=== PATIENT | female | born 1955 | race Caucasian/White ===

== ENCOUNTER 2020-04-27 08:07 | Outpatient (CLI) | payer MEDICARE, SELFPAY ==
--- NOTE | ~2020-04-27 | MM_ITS ---
EXAMINATION: MM screening [facility] BI w jermaine HISTORY: Screening TECHNIQUE: Craniocaudal and mediolateral oblique 3-D tomosynthesis images were obtained and synthetic 2-D images were generated. CAD analysis was submitted and interpreted. COMPARISON: 01/14/2011 BREAST PARENCHYMAL COMPOSITION: There are scattered areas of fibroglandular density. FINDINGS: There is no evidence of suspicious mass, calcification, or architectural distortion to sugg est malignancy in either breast. There has been no suspicious interval change. IMPRESSION: 1. No mammographic evidence of malignancy. 2. Recommend routine screening mammography in one year. BI-RADS Category 1: Negative Reviewed, dictated and finalized at location A.
== END 2020-04-27 08:08 | disposition home or self-care (01) ==
LOC: ANHIMG 08:14
PROVIDERS: PCP Family Medicine; Visit Provider Obstetrics & Gynecology
DX: Z12.31 Encounter for screening mammogram for malignant neoplasm of breast (principal)
CPT/HCPCS: 77063; 77067

== ENCOUNTER 2020-06-14 11:52 | Outpatient (CLI) | payer MEDICARE, SELFPAY ==
--- NOTE | 2020-06-14 12:35 | ECG_ITS ---
Measurements Intervals [place] Rate: 61 P: 18 UT: 147 QRS: 17 QRSD: 93 T: 30 QT: 408 QTc: 412 Interpretive Statements SINUS RHYTHM BASELINE ARTIFACT- I, II, III, AVR, AVL, AVF NORMAL ECG Electronically Signed On 06-14-2020 12:57:42 CDT by Presley Emerson D.O.
[2020-06-14 13:00] LABS: Basophils Percent Auto 0.6 % (0.2-1.2); Eosinophils Percent Auto 0.7 % (0-4.4); Hematocrit 40.9 % (37.0-47.0); Hemoglobin 13.7 g/dL (12.0-15.0); Immature Granulocyte Absolute 0.02 K/mm3 (0.00-0.031); Immature Granulocyte Percent A 0.4 % (0-0.5); Lymphocytes Absolute Auto 1.73 K/mm3 (0.9-3.2); Lymphocytes Percent Auto 31.9 % (18.3-44.2); Mean Corpuscular HGB Conc 33.5 g/dl (32-36); Mean Corpuscular Hemoglobin 32.7 pg (26-34); Mean Corpuscular Volume 97.6 fl (80-100); Mean Platelet Volume 9.8 fl (7.4-10.4); Monocytes Absolute Auto 0.4 K/mm3 (0.1-0.6); Monocytes Percent Auto 6.8 % (2.6-8.5); Neutrophils Absolute Auto 3.2 K/mm3 (1.3-6.7); Neutrophils Percent Auto 59.6 % (45.5-73.1); Platelet Count Result 207 k/mm3 (150-375); Red Blood Count 4.19 M/mm3 (4.2-5.4); Red Cell Distribution Width 12.5 % (11.5-14.5); White Blood Count 5.4 K/mm3 (4.5-10.0)
[2020-06-14 13:09] LABS: INR 0.9; Prothrombin Time 12.1 Seconds (11.1-14.7)
[2020-06-14 13:10] LABS: Partial Thromboplastin Time 27.9 SECONDS (22.3-36.8)
[2020-06-14 13:15] LABS: Alanine Aminotransferase 20 U/L (4-35); Albumin Level 4.6 g/dL (3.5-5.1); Alkaline Phosphatase 103 U/L (38-126); Anion Gap 8 mmol/L (8-16); Aspartate Amino Transferase 26 U/L (14-36); Bilirubin,Total 0.7 mg/dL (0.2-1.3); Blood Urea Nitrogen 13 mg/dL (7-17); Calcium 9.4 mg/dL (8.4-10.2); Carbon Dioxide 29 mmol/L (22-30); Chloride 102 mmol/L (98-107); Estimated Glomerular Filt Rate > 60; Glucose 99 mg/dL (65-105); Potassium 3.9 mmol/L (3.4-5.0); Sodium 139 mmol/L (137-145)
== END 2020-06-14 11:53 | disposition home or self-care (01) ==
LOC: ANHSURGERY 11:55
PROVIDERS: PCP Family Medicine; Visit Provider Urology
DX: N81.10 Cystocele, unspecified (principal); I10 Essential (primary) hypertension; Z01.818 Encounter for other preprocedural examination
CPT/HCPCS: 36415; 80053; 85025; 85610; 85730; 86850; 86900; 86901; 87086; 87088; 93005

== ENCOUNTER 2020-06-22 00:37 | Outpatient (CLI) | payer MEDICARE, SELFPAY ==
[2020-06-22 20:27] LABS: SARS-CoV-2 RNA PCR Negative
== END 2020-06-22 00:38 | disposition home or self-care (01) ==
LOC: ANHCOVIDDT 00:38
PROVIDERS: PCP Family Medicine; Visit Provider Urology
DX: Z01.812 Encounter for preprocedural laboratory examination (principal); Z20.828 Contact with and (suspected) exposure to other viral communicable diseases
CPT/HCPCS: 87635; C9803; U0003

== ENCOUNTER 2020-06-25 00:36 | Day surgery (SDC) | payer MEDICARE, SELFPAY ==
[2020-06-14 12:35] VITALS: BP 151/67; PULSE 69; RESP 16; TEMP 37.2; O2SAT 99; BMI 31.4
--- NOTE | 2020-06-23 10:55 | PM.IMHP ---
H&P: HPI History of Present Illness Date/Time: 06/23/20 10:55 Chief complaint: Vaginal Vault Prolapse/ Stress Incontinence Narrative: Iveth Charles is a 65 year old female with POP and LEWIS Review of Systems Review of Systems: All systems reviewed & are unremarkable except as noted in HPI and below PMFSH Past Medical History Medical History (Updated 06/23/20 @ 10:57 by Miller Nolan MD) HLD (hyperlipidemia) Hypertension Surgical History Surgical History H/O: hysterectomy Family History Family History (Updated 03/29/20 @ 11:07 by Pia Toribio CMA) Mother Hypertension Carcinoma of colon Father Leukemia Sibling Diabetes mellitus Sibling Hyperlipidemia Carcinoma of colon Sibling Glaucoma Social History Social History (Updated 03/29/20 @ 11:08 by Pia Toribio CMA) Smoking packs per day: 0.5 Smoking cigarettes per day: 10.0 Years smoked: 6 Smoking pack-years: 3.00 Smoking status: Former smoker Smoking end date: 08/17/80 Alcohol intake: current Drinks per week: 12 Substance use: never Substance use type: does not use Spiritual care concerns: No Meds Home Medications and Allergies Home Medications Medication Instructions Recorded Confirmed Type cholecalciferol (vitamin D3) 125 125 mcg PO DAILY 03/29/20 06/14/20 History mcg (5,000 unit) capsule atorvastatin 20 mg tablet 20 mg PO DAILY #90 tablet 04/16/20 06/14/20 Rx losartan 50 mg tablet 50 mg PO DAILY #90 tablet 05/02/20 06/14/20 Rx Allergies Allergy/AdvReac Type Severity Reaction Status Date / Time No Known Allergies Allergy Mild Verified 06/14/20 12:04 Exam Const: General: cooperative and healthy appearing HENMT: Head: normal to inspection Eyes: General: appearance normal, both eyes and all related structures Neck: Neck: normal visual inspection Resp: Effort & Inspection: normal respiratory effort and able to speak in complete sentences GI: Inspection: normal to inspection : Other: [place] at +6 Skin: General skin exam: normal color Neuro: General: patient oriented x3 Assessment and Plan Assessment and plan (1) Prolapse of vaginal vault after hysterectomy: Code(s): N99.3 - Prolapse of vaginal vault after hysterectomy Status: Acute Assessment and Plan: robotic Sacral Colpopexy (2) LEWIS (stress urinary incontinence, female): Code(s): N39.3 - Stress incontinence (female) (male) Status: Acute Assessment and Plan: urehtral sling
[2020-06-25] VITALS (11 sets, daily range): BP systolic 124–162; BP diastolic 62–80; PULSE 52–72; RESP 11–20; TEMP 36.2–36.5; O2SAT 97–100
--- NOTE | 2020-06-25 06:38 | WPDHPUPDATE1 ---
History and Physical Update Update Date/Time: 06/25/20 06:38 History and Physical has been reviewed, including an updated exam of the patient. There are NO changes in the patient's condition. Risks, benefits, and alternatives have been discussed and questions answered. Patient agrees to proceed with procedure.
--- NOTE | 2020-06-25 06:53 | WPDANESEPPF ---
Anes - Initial Pre Proc Eval Procedure: Operation Date: 06/25/20 07:30 Proposed Procedures p Robotic Sacrocolpopexy, Possible Urethral Sling - Miller Nolan MD Date/Time: 06/25/20 06:53 Surgeon: Miller Nolan MD Pre Op Diagnosis: Vaginal Vault Prolapse/ Stress Incontinence Patient Data Age: 65 Gender: F Height: 5 ft 4 in Weight: 83.8 kg Last Vital Signs Temp 37.2 C 06/14/20 12:35 Pulse 69 06/14/20 12:35 Resp 16 06/14/20 12:35 BP 151/67 H 06/14/20 12:35 Pulse Ox 99 06/14/20 12:35 Allergies Allergy/AdvReac Type Severity Reaction Status Date / Time No Known Allergies Allergy Mild Verified 06/25/20 06:07 Home Medications Medication Instructions Recorded Confirmed Type cholecalciferol (vitamin D3) 125 125 mcg PO DAILY 03/29/20 06/25/20 History mcg (5,000 unit) capsule atorvastatin 20 mg tablet 20 mg PO DAILY #90 tablet 04/16/20 06/25/20 Rx losartan 50 mg tablet 50 mg PO DAILY #90 tablet 05/02/20 06/25/20 Rx Patient hx anesthesia problems: none Family hx anesthesia problems: none PMFSH Past Medical History Medical History HLD (hyperlipidemia) Hypertension Surgical History Surgical History H/O: hysterectomy Family History Family History Mother Hypertension Carcinoma of colon Father Leukemia Sibling Diabetes mellitus Sibling Hyperlipidemia Carcinoma of colon Sibling Glaucoma Social History Social History Smoking packs per day: 0.5 Smoking cigarettes per day: 10.0 Years smoked: 6 Smoking pack-years: 3.00 Smoking status: Former smoker Smoking end date: 08/17/80 Alcohol intake: current Drinks per week: 12 Alcohol use details: BEER Substance use: never Substance use type: does not use Living arrangements: with friend(s) Spiritual care concerns: No Anes - Eval Final PreProcedure Day of Procedure 06/25/20 06:53 Patient weight: obese Heart: regular rate and rhythm Lungs: clear to auscultation Airway: Mallampati scale class II Neurological: alert and oriented Last oral intake: >/= 8 hours ASA classification: III Emergent: no Anesthetic plan: proceed Anesthesia type and monitoring: general ETT and standard monitoring Informed Consent: The patient's anesthetic plan and its attendant risks and benefits were discussed with the patient/family/POA. Questions were solicited and answers provided to the satisfaction of the patient/family/POA.
[2020-06-25] MEDS: LACTATED RINGERS 1,000 ML 30 ML IV CONT ×2 (06:57→09:58)
[2020-06-25] MEDS: ceFAZolin 2 GM/D5W 50 ML 2 GM/50 ML BAG IVPB (07:26)
[2020-06-25] MEDS: KETOROLAC 30 MG/ML VIAL (*BKC) IV PUSH (09:30)
--- NOTE | 2020-06-25 09:49 | PM.PROC ---
Procedure Note - Detailed Date of procedure: 06/25/20 Pre-op diagnosis: Vaginal Vault Prolapse/ Stress Incontinence Post hysterectomy vaginal vault prolapse Stress urinary incontinence Post-op diagnosis: same Procedure performed: Robotic assisted laparoscopic sacral colpopexy Miid urethral sling Description of procedure: Anesthesia: General She understands the risks of bleeding, infection, recurrence of prolapse, diskitis, postoperative voiding dysfunction including incontinence and retention, dyspareunia, persistent or recurrent stress incontinence, vaginal mesh extrusion, urinary tract mesh erosion, bowel injury or obstruction, damage to surrounding organs, medical related complications. Agrees to proceed She was correctly identified and informed consent was obtained. She is brought to the operating room. She was given general anesthesia. She was placed in the low lithotomy position. All pressure points were padded. She was given appropriate perioperative antibiotics. A time-out was performed. I anesthetized the skin 3 fingerbreadths cephalad to the umbilicus. I incised the skin. I located the fascia. I entered the fascia sharply. I placed Vicryl sutures for later fascial closure. I placed a midline trocar. Under direct vision 2 additional trocars were placed in the right and left upper quadrant. She was placed in steep Trendelenburg. The robot was docked. I then sat at the console. With the Sizer in the vagina I created a plane on the anterior and posterior vaginal wall. I took great care not to injure the vagina bladder or rectum. of note there was dense scarring in this area from her prior hysterectomy. There is no evidence of any bowel or bladder injury. I introduced the mesh into the abdomen. I sewed the anterior leaflet of mesh on the anterior vaginal wall and posterior leaflet of mesh on the posterior vaginal wall with several sutures with 2 Gortex taking great care not to go through and through. I then reflected the colon laterally. I opened up the peritoneum over the sacral promontory. I carried this incision into the cul-de-sac. I located the ureter and kept lateral. I freed up the edges of the peritoneum. I located the anterior longitudinal ligament of the sacrum. I then tensioned my mesh appropriately. I did a vaginal exam to ensure prolapse reduction without undue tension. Some perineal laxity was noted but I opted to not perform a perineoplasty. I then sewed the proximal leaflet of mesh onto the ligament with 3 sutures of 2 0 [place]rek. I used a 2 0 Monocryl to completely and meticulously retroperitonealized all mesh. I allowed the colon to go back into its normal anatomic location no sign of any impingement or stricturing. The abdomen was exited. Fascial sutures were closed. Skin was closed. Glue was applied. She was repositioned and prepped for urethral sling. I marked out the thigh incisions. I anesthetized the skin and made those incisions. I anesthetized the anterior vaginal wall over the mid urethra. I made a 1 cm incision. I dissected out laterally taking great care not to injure the urethra or the vaginal wall. I passed the helical trocars. First on the left and then on the right. This was done from the thigh incision towards the vaginal incision. The sling was connected to the trocars and brought out through the thigh incision. I tensioned the sling appropriately. I cut and removed the plastic sheaths. I then closed the incision with 2 0 Vicryl. Cystoscopy showed no surgical artifact in the bladder. No surgical artifact in the urethra. Ureteral orifices were seen to excrete clear yellow urine. The Mendez catheter was replaced. She was awakened and transferred to the PACU in stable condition. Implants: Y mesh Anesthesia: GETA Surgeon: Miller Nolan MD Drains: Yes (Mendez catheter) Packing: No Pathology: none sent Complications: No immediate complications Condition: stable Disposition: PACU
[2020-06-25] MEDS: fentaNYL CITRATE INJ (*CRX) 100 MCG/2 ML VIAL 25 MCG IV PUSH ×2 (10:54→10:57)
[2020-06-25] MEDS: ONDANSETRON INJ 4 MG/2 ML VIAL IV PUSH (12:20)
--- NOTE | 2020-06-25 13:06 | SUR.PHASEII ---
1305 - Dr. Nolan in room talking with pt
== END 2020-06-25 13:24 | disposition home or self-care (01) ==
PROVIDERS: PCP Family Medicine; Visit Provider Urology
PROC: (CPT 57425; principal; 2020-06-25 07:30)
DX: N99.3 Prolapse of vaginal vault after hysterectomy (principal); N39.3 Stress incontinence (female) (male); I10 Essential (primary) hypertension; E78.5 Hyperlipidemia, unspecified; E66.01 Morbid (severe) obesity due to excess calories; Z68.31 Body mass index [BMI] 31.0-31.9, adult; Z87.891 Personal history of nicotine dependence; Z79.899 Other long term (current) drug therapy
CPT/HCPCS: 57288; 57425; 36415; 80053; 85025; 85610; 85730; 86850; 86900; 86901; 87086; 87088; 93005; A9270; C1771; C1781; J0131; J0330; J0690; J1100; J1170; J1885; J2250; J2370; J2405; J2704; J2710; J3010; J7030; J7120

== ENCOUNTER 2020-09-01 01:04 | Outpatient (CLI) | payer MEDICARE, SELFPAY ==
[2020-09-01 18:47] LABS: SARS-CoV-2 RNA PCR Negative
== END 2020-09-01 01:05 | disposition home or self-care (01) ==
LOC: ANHCOVIDDT 01:05
PROVIDERS: PCP Family Medicine; Visit Provider Internal Medicine Gastroenterology
DX: Z01.812 Encounter for preprocedural laboratory examination (principal); Z20.822 Contact with and (suspected) exposure to COVID-19
CPT/HCPCS: C9803; U0003; U0005

== ENCOUNTER 2020-09-04 00:51 | Day surgery (SDC) | payer MEDICARE, SELFPAY ==
[2020-08-23 14:48] VITALS: BMI 31.8
[2020-09-04 06:25] VITALS: BP 161/83; PULSE 67; RESP 20; TEMP 36.7; O2SAT 100; BMI 31.4
[2020-09-04] MEDS: LACTATED RINGERS 1,000 ML 150 ML IV CONT (06:33)
--- NOTE | 2020-09-04 07:17 | WPDANESEPPF ---
Anes - Initial Pre Proc Eval Procedure: Operation Date: 09/04/20 07:30 Proposed Procedures p Screening Colonoscopy - Nicolas Pimentel MD Date/Time: 09/04/20 07:17 Surgeon: Nicolas Pimentel MD Pre Op Diagnosis: Neoplasm Screening Patient Data Age: 65 Gender: F Height: 5 ft 4 in Weight: 82.9 kg Last Vital Signs Temp 98.0 F 09/04/20 06:25 Pulse 67 09/04/20 06:25 Resp 20 09/04/20 06:25 BP 161/83 H 09/04/20 06:25 Pulse Ox 100 09/04/20 06:25 Allergies Allergy/AdvReac Type Severity Reaction Status Date / Time No Known Allergies Allergy Mild Verified 09/04/20 06:22 Home Medications Medication Instructions Recorded Confirmed Type cholecalciferol (vitamin D3) 125 125 mcg PO DAILY 03/29/20 08/23/20 History mcg (5,000 unit) capsule atorvastatin 20 mg tablet 20 mg PO DAILY #90 tablet 04/16/20 08/23/20 Rx losartan 50 mg tablet 50 mg PO DAILY #90 tablet 05/02/20 08/23/20 Rx Patient hx anesthesia problems: none Family hx anesthesia problems: none PMFSH Past Medical History Medical History HLD (hyperlipidemia) Hypertension Surgical History Surgical History H/O: hysterectomy Family History Family History Mother Hypertension Carcinoma of colon Father Leukemia Sibling Diabetes mellitus Sibling Hyperlipidemia Carcinoma of colon Sibling Glaucoma Social History Social History Smoking packs per day: 0.5 Smoking cigarettes per day: 10.0 Years smoked: 6 Smoking pack-years: 3.00 Smoking status: Former smoker Tobacco type: cigarettes Smoking end date: 08/17/80 Alcohol intake: current Drinks per week: 6 Substance use: never Substance use type: does not use Living arrangements: with roommate(s) Spiritual care concerns: No Anes - Eval Final PreProcedure Day of Procedure 09/04/20 07:17 Patient weight: obese Heart: regular rate and rhythm Lungs: clear to auscultation Airway: Mallampati scale class II Neurological: alert and oriented Last oral intake: >/= 8 hours ASA classification: III Emergent: no Anesthetic plan: proceed Anesthesia type and monitoring: general GIVS and standard monitoring Informed Consent: The patient's anesthetic plan and its attendant risks and benefits were discussed with the patient/family/POA. Questions were solicited and answers provided to the satisfaction of the patient/family/POA.
--- NOTE | 2020-09-04 07:34 | PM.HPGS ---
History of Present Illness History of Present Illness Consent: Risks, benefits, and alternatives have been discussed and questions answered. Patient agrees to proceed with procedure. Chief complaint: Neoplasm Screening Narrative: Iveth Charles is a 65 year old female here for colonoscopy, last one 10 years ago. Mother had colon cancer. Review of Systems Constitutional: Constitutional: Denies headache(s) and Denies weakness Eyes: Eyes: Denies blurry vision ENT: Reports Normal hearing present, Denies headache(s) and Denies neck pain Cardiovascular: Cardiovascular: Denies chest pain and Denies dyspnea Respiratory: Respiratory: Denies dyspnea Gastrointestinal: Gastrointestinal: Reports no additional gastrointestinal complaints Genitourinary: Genitourinary: Denies dysuria Musculoskeletal: Musculoskeletal: Denies neck pain Integumentary/Breasts: Skin/Breast: Denies dry skin Neurologic: Reports Normal hearing present, Denies headache(s) and Denies weakness Psychiatric: Psychiatric: Denies anxiety Endocrine: Endocrine: Denies change in body appearance Hematologic/Lymphatic: Hematologic/Lymphatic: Denies easy bleeding Allergic/Immunologic: Allergic/Immunologic: Denies urticaria PMFSH Past Medical History Medical History HLD (hyperlipidemia) Hypertension Surgical History Surgical History H/O: hysterectomy Family History Family History Mother Hypertension Carcinoma of colon Father Leukemia Sibling Diabetes mellitus Sibling Hyperlipidemia Carcinoma of colon Sibling Glaucoma Social History Social History Smoking packs per day: 0.5 Smoking cigarettes per day: 10.0 Years smoked: 6 Smoking pack-years: 3.00 Smoking status: Former smoker Tobacco type: cigarettes Smoking end date: 08/17/80 Alcohol intake: current Drinks per week: 6 Substance use: never Substance use type: does not use Living arrangements: with roommate(s) Spiritual care concerns: No Meds Home Medications and Allergies Home Medications Medication Instructions Recorded Confirmed Type cholecalciferol (vitamin D3) 125 125 mcg PO DAILY 03/29/20 08/23/20 History mcg (5,000 unit) capsule atorvastatin 20 mg tablet 20 mg PO DAILY #90 tablet 04/16/20 08/23/20 Rx losartan 50 mg tablet 50 mg PO DAILY #90 tablet 05/02/20 08/23/20 Rx Allergies Allergy/AdvReac Type Severity Reaction Status Date / Time No Known Allergies Allergy Mild Verified 09/04/20 06:22 Vital Signs Vital Signs - 24 hr 09/04/20 06:25 Temperature 98.0 F Pulse Rate 67 Respiratory Rate 20 Blood Pressure 161/83 H Pulse Oximetry 100 Exam Const: General: comfortable and no acute distress HENMT: General nose exam: Normal nares present Eyes: General: appearance normal, both eyes and all related structures Neck: Neck: no JVD Resp: Auscultation: clear to auscultation bilaterally Cardio: Rate: regular rate Rhythm: regular rhythm GI: Inspection: non-distended GI Palp: Yes Soft to palpation Skin: General skin exam: normal color Neuro: General: gait normal Speech: normal speech Extrem: General: normal to inspection Psych: Mental Status: mental status grossly normal Assessment and Plan Assessment and plan (1) Family history of colon cancer: Code(s): Z80.0 - Family history of malignant neoplasm of digestive organs Status: Acute Assessment and Plan: will proceed with colonoscopy
[2020-09-04 07:50] VITALS: BP 107/63; PULSE 64; RESP 21; O2SAT 98
[2020-09-04 08:00] VITALS: BP 126/64; PULSE 60; RESP 18; O2SAT 99
[2020-09-04 08:10] VITALS: BP 137/65; PULSE 62; RESP 20; O2SAT 100
== END 2020-09-04 08:26 | disposition home or self-care (01) ==
PROVIDERS: PCP Family Medicine; Visit Provider Internal Medicine Gastroenterology
PROC: 0DJD8ZZ Inspection of Lower Intestinal Tract, Via Natural or Artificial Opening Endoscopic (ICD-10-PCS; CPT 45378; principal; 2020-09-04 07:30)
DX: Z12.11 Encounter for screening for malignant neoplasm of colon (principal); K57.30 Diverticulosis of large intestine without perforation or abscess without bleeding; K64.8 Other hemorrhoids; Z80.0 Family history of malignant neoplasm of digestive organs; I10 Essential (primary) hypertension; E78.5 Hyperlipidemia, unspecified; Z87.891 Personal history of nicotine dependence; E66.9 Obesity, unspecified; Z68.31 Body mass index [BMI] 31.0-31.9, adult
CPT/HCPCS: G0105; C9803; J2704; J7120; U0003; U0005

== ENCOUNTER 2021-07-19 07:14 | Outpatient (CLI) | payer MEDICARE, SELFPAY ==
--- NOTE | ~2021-07-19 | MM_ITS ---
EXAMINATION: MM screening [facility] BI w jermaine HISTORY: Screening mammogram TECHNIQUE: Craniocaudal and mediolateral oblique 3-D tomosynthesis images were obtained and synthetic 2-D images were generated. CAD analysis was submitted and interpreted. COMPARISON: 04/27/2020, 01/14/2011 bilateral screening mammogram examinations BREAST PARENCHYMAL COMPOSITION: There are scattered areas of fibroglandular density. FINDINGS: There is no evidence of suspicious mass, calcification, or architectural distortion to sugg est malignancy in either breast. There has been no suspicious interval change. IMPRESSION: 1. No mammographic evidence of malignancy. 2. Recommend routine screening mammography in one year. BI-RADS Category 1: Negative Reviewed, dictated and finalized at location A. MANAGER
== END 2021-07-19 07:15 | disposition home or self-care (01) ==
LOC: ANHIMG 07:15
PROVIDERS: PCP Family Medicine; Visit Provider Physician Assistant
DX: Z12.31 Encounter for screening mammogram for malignant neoplasm of breast (principal)
CPT/HCPCS: 77063; 77067

== ENCOUNTER 2022-08-19 07:24 | Outpatient (CLI) | payer MEDICARE, SELFPAY ==
--- NOTE | ~2022-08-19 | MM_ITS ---
EXAMINATION: MM screening [facility] BI w jermaine HISTORY: Screening mammogram TECHNIQUE: Craniocaudal and mediolateral oblique 3-D tomosynthesis images were obtained and synthetic 2-D images were generated. CAD analysis was submitted and interpreted. COMPARISON: 07/19/2021, 04/27/2020, 01/14/2011 BREAST PARENCHYMAL COMPOSITION: There are scattered areas of fibroglandular density. FINDINGS: No suspicious mass, calcification, or architectural distortion are identified in either kirk ast to suggest malignancy. There has been no suspicious interval change. IMPRESSION: 1. No mammographic evidence of malignancy. 2. Recommend routine screening mammography in one year. BI-RADS Category 1: Negative Reviewed, dictated and finalized at location A. CONTAINER FILLER
--- NOTE | ~2022-08-19 | DEXA_ITS ---
Bone Density Report Name: CARMEN MENDEZ Age: 67 Sex: Female Ethnicity: White Date of : 1955 Indication: postmenopausal; screening for osteoporosis; hysterectomy; Referring Provider: JODIE MARCOS Study: Bone densitometry was performed. Exam Date: August 19, 2022 Accession number: [id number] Bone Density: Region BMD T-score Z-score Classification AP Spine(L1-L4) 1.005 -0.4 1.6 Normal Femoral Neck (Left) 0.612 -2.1 -0.4 Osteopenia Total Hip (Left) 0.835 -0.9 0.5 Normal Femoral Neck (Right) 0.702 -1.3 0.4 Osteopenia Total Hip (Right) 0.915 -0.2 1.2 Normal Total Hip Mean 0.875 -0.6 0.9 Normal World Health Organization criteria for BMD impression classify patients as: Normal (T-score at or above -1.0), Osteopenia (T-score between -1.0 and -2.5), or Osteoporosis (T-score at or below -2.5). 10-year Fracture Risk(1): Major Osteoporotic Fracture 12% Hip Fracture 2.2% Reported Risk Factors: [place] (), Neck BMD=0.612, BMI=29.2 (1) FRAX(R) Version 3.08. Fracture probability calculated for an untreated patient. Fracture probability may be lower if the patient has received treatment. Clinical Information Provided by Patient: Has used the following medications: Vitamin D, Calcium Has the following medical conditions: Hysterectomy Patient maximum height was 64 Menopause Age: 50 Drinks caffeinated beverages Onset of menses at age 15 Number of children 2 Impression: The patient has low bone mass, based on the Left Femoral Neck T-score. The patient has an estimated ten-year risk of hip fracture of 2.2% and an estimated ten-year risk of major fracture of 12%, based on the WHO FRAX algorithm. Discussion: BONE DENSITY IS LOW AT ONE OR MORE SKELETAL SITES. This patient's lowest T-score is low at one or more skeletal sites. It meets the World Health Organization's (WHO) criteria for ?low bone mass? (T-score between -1.0 and -2.5). The patient's 10-year risk of fracture as calculated by FRAX is less than the threshold where pharmacological therapy is recommended by the National Osteoporosis Foundation (NOF). However, all treatment decisions require clinical judgment and consideration of individual patient factors, including patient preferences, comorbidities, previous drug use, risk factors not captured in the FRAX model (e.g., frailty, falls, vitamin D deficiency, increased bone turnover, interval significant decline in bone density) and possible under or overestimation of fracture risk by FRAX. The patient should follow a healthful lifestyle (good nutrition with adequate calcium and vitamin D, and appropriate weight-bearing exercise). Follow-Up: Consider repeating this study in 2 to 3 years to reassess this patient's status, or sooner if there is some new clinical indication
== END 2022-08-19 07:25 | disposition home or self-care (01) ==
PROVIDERS: PCP Family Medicine; Visit Provider Physician Assistant
DX: Z12.31 Encounter for screening mammogram for malignant neoplasm of breast (principal); Z78.0 Asymptomatic menopausal state; M85.852 Other specified disorders of bone density and structure, left thigh; M85.851 Other specified disorders of bone density and structure, right thigh
CPT/HCPCS: 77063; 77067; 77080

== ENCOUNTER 2023-06-23 10:32 | Outpatient (CLI) | payer MEDICARE, SELFPAY ==
[2023-06-23 12:45] LABS: Alanine Aminotransferase 17 U/L (6-35); Albumin Level 4.4 g/dL (3.5-5.1); Alkaline Phosphatase 111 U/L (38-126); Anion Gap 7 mmol/L (8-16); Aspartate Amino Transferase 22 U/L (14-36); Bilirubin,Total 1.3 mg/dL (0.2-1.3); Blood Urea Nitrogen 14 mg/dL (7-17); Calcium 9.5 mg/dL (8.4-10.2); Carbon Dioxide 26 mmol/L (22-30); Chloride 104 mmol/L (98-107); Cholesterol 181 mg/dL (0-200); Estimated Glomerular Filt Rate > 60; Glucose 91 mg/dL (65-110); HDL Direct 71 mg/dL; Potassium 3.7 mmol/L (3.4-5.0); Sodium 137 mmol/L (137-145); Triglycerides 85 mg/dL (<150)
[2023-06-23 12:56] LABS: LDL Cholesterol Direct 82 mg/dL
== END 2023-06-23 10:33 | disposition home or self-care (01) ==
LOC: ANHLAB 10:35
PROVIDERS: Physician Assistant; PCP Family Medicine; Visit Provider Internal Medicine Hematology & Oncology
DX: Z13.1 Encounter for screening for diabetes mellitus (principal); Z13.220 Encounter for screening for lipoid disorders; E78.5 Hyperlipidemia, unspecified
CPT/HCPCS: 36415; 80053; 80061

== ENCOUNTER 2024-12-22 08:39 | Outpatient (CLI) | payer MEDICARE, SELFPAY ==
--- NOTE | ~2024-12-22 | MM_ITS ---
EXAMINATION: MM screening [facility] BI w jermaine HISTORY: Screening TECHNIQUE: Craniocaudal and mediolateral oblique 3-D tomosynthesis images were obtained and synthetic 2-D images were generated. CAD analysis was submitted and interpreted. COMPARISON: Comparison to multiple prior studies sequentially, with oldest reviewed study dated 04/27. BREAST PARENCHYMAL COMPOSITION: Not dense: There are scattered areas of fibroglandular density. FINDINGS: There is no evidence of suspicious mass, calcification, or architectural distortion to sugg est malignancy in either breast. There has been no suspicious interval change. IMPRESSION: 1. No mammographic evidence of malignancy. 2. Recommend routine screening mammography in one year. BI-RADS Category 1: Negative Reviewed, dictated and finalized at location A.
--- NOTE | ~2024-12-22 | DEXA_ITS ---
Bone Density Report Name: CARMEN MENDEZ Age: 69 Sex: Female Ethnicity: White Date of : 1955 Indication: postmenopausal; screening for osteoporosis; hysterectomy; Referring Provider: KARMEN RODRIGUEZ Study: Bone densitometry was performed. Exam Date: December 22, 2024 Accession number: [id number] Bone Density: Region BMD T-score Z-score Classification AP Spine(L1-L4) 0.995 -0.5 1.7 Normal Femoral Neck (Left) 0.581 -2.4 -0.6 Osteopenia Total Hip (Left) 0.796 -1.2 0.3 Osteopenia Femoral Neck (Right) 0.676 -1.6 0.3 Osteopenia Total Hip (Right) 0.905 -0.3 1.2 Normal Total Hip Mean 0.851 -0.8 0.8 Normal World Health Organization criteria for BMD impression classify patients as: Normal (T-score at or above -1.0), Osteopenia (T-score between -1.0 and -2.5), or Osteoporosis (T-score at or below -2.5). 10-year Fracture Risk(1): Major Osteoporotic Fracture 16% Hip Fracture 4.7% Reported Risk Factors: [place] (), Neck BMD=0.581, BMI=30.2, alcohol use (1) FRAX(R) Version 3.08. Fracture probability calculated for an untreated patient. Fracture probability may be lower if the patient has received treatment. Previous Exams: Region Exam Age BMD T-score BMD Change BMD Change Date g/cm2 vs Baseline vs Previous AP Spine (L1-L4) 12/22/2024 69 0.995 -0.5 -0.009 (-0.9%) -0.009 (-0.9%) 08/19/2022 67 1.005 -0.4 Total Hip(Left) 12/22/2024 69 0.796 -1.2 -0.039 (-4.7%) -0.039 (-4.7%) 08/19/2022 67 0.835 -0.9 Total Hip(Right) 12/22/2024 69 0.905 -0.3 -0.009 (-1.0%) -0.009 (-1.0%) 08/19/2022 67 0.915 -0.2 *Denotes significance at 95% confidence level, LSC for AP Spine = 0.022 g/cm2, LSC for Total Hip = 0.027 g/cm2 Clinical Information Provided by Patient: Has 3 or more alcoholic drinks per day Has used the following medications: Vitamin D, Calcium Has the following medical conditions: Hysterectomy Patient maximum height was 64 Menopause Age: 50 Does not regularly consume dairy products Drinks caffeinated beverages Onset of menses at age 15 Number of children 2 Impression: The patient has low bone mass, based on the Left Femoral Neck T-score. The patient has an estimated ten-year risk of hip fracture of 4.7% and an estimated ten-year risk of major fracture of 16%, based on the WHO FRAX algorithm. The patient has risk factors, including: excessive alcohol use. The BMD for the Total Hip(Left) decreased, changing by -4.7% since the last DXA exam. Discussion: BONE DENSITY IS LOW AT ONE OR MORE SKELETAL SITES. THE PATIENT'S BMD AND CLINICAL RISK FACTORS CONTRIBUTE TO THIS PATIENT'S INCREASED RISK OF FRACTURE. This patient's lowest T-score is low at one or more skeletal sites. It meets the World Health Organization's (WHO) criteria for ?low bone mass? (T-score between -1.0 and -2.5). The patient's 10-year risk of hip fracture as calculated by FRAX exceeds the threshold where pharmacological therapy is recommended by the National Osteoporosis Foundation (NOF). However, all treatment decisions require clinical judgment and consideration of individual patient factors, including patient preferences, comorbidities, previous drug use, risk factors not captured in the FRAX model (e.g., frailty, falls, vitamin D deficiency, increased bone turnover, interval significant decline in bone density) and possible under or overestimation of fracture risk by FRAX. The patient should follow a healthful lifestyle (good nutrition with adequate calcium and vitamin D, and appropriate weight-bearing exercise). Follow-Up: Consider a repeat BMD and Vertebral Fracture Assessment (VFA) exam in 2 years or sooner if medically necessary, to reassess this patient's status. Reported by: AKILAH on 12/22/2024 9:31:00 AM. Reviewed, dictated and finalized at location [facility]
== END 2024-12-22 08:40 | disposition home or self-care (01) ==
PROVIDERS: PCP Family Medicine; Visit Provider Family Medicine
DX: Z12.31 Encounter for screening mammogram for malignant neoplasm of breast (principal); Z78.0 Asymptomatic menopausal state; M85.852 Other specified disorders of bone density and structure, left thigh; M85.851 Other specified disorders of bone density and structure, right thigh
CPT/HCPCS: 77063; 77067; 77080